=== PATIENT | male | born 1945 | race Two or more races ===

== ENCOUNTER 2018-04-01 01:34 | Emergency (ER) | payer SELFPAY ==
[2018-04-01] MEDS ORDERED: KETOROLAC TROMETHAMINE 60 MG/2 ML VIAL IM ONE (01:40)
[2018-04-01 01:42] VITALS: BP 145/73; PULSE 63; TEMP 97.7; BMI 23.7
[2018-04-01] MEDS ORDERED: CYCLOBENZAPRINE HCL 10 MG TABLET (FP) PO ONE (01:45)
--- NOTE | 2018-04-01 01:46 | PDOC ---
History of Present Illness - General Chief Complaint: Pain, Acute Stated Complaint: CHEST PAIN WITH MOVEMENT Time Seen by Provider: 04/01/18 01:40 History Source: Patient Exam Limitations: No Limitations - History of Present Illness Initial Comments: 04/01/18 01:46 This is a 72-year-old male who comes in complaining of waking up this morning with posterior upper shoulder and neck pain radiating down the outside of his right arm. Patient said as the day progressed the pain then began to radiate across the top of his chest. Pain is worse when he moves. Patient said that the pain is intermittent and when he moves he gets a spasm across the upper part of his chest and it is extremely painful. Patient denies any associated shortness of breath, nausea, diaphoresis. Patient has a history of high cholesterol otherwise denies any cardiac risk factors. He does not smoke he has no family history of coronary disease he has no hypertension diabetes. He said he had something similar in the past that resolved on its own with some anti- inflammatories varied he did take an anti-inflammatory prior to coming in PAST MEDICAL HISTORY: High cholesterol PAST SURGICAL HISTORY: no significant history FAMILY HISTORY: no pertinant history SOCIAL HISTORY: Pt lives with family and is employed. MEDICATIONS: reviewed ALLERGIES: As per nursing notes Review of Systems General: No fevers or chills, no weakness, no weight loss HEENT: No change in vision. No sore throat,. No ear pain CardioVascular: No chest pain or shortness of breath Respiratory:No cough, or wheezing. Gastrointestinal: no nausea, vomitting, diarrhea or constipation, No rectal bleeding Genitourinary: No dysuria, hematuria, or frequency Musculoskeletal: No joint or muscle pain or swelling Neurologic: No headache, vertigo, dizziness or loss of consciousness Psychiatric: nor depression Skin: No rashes or easy bruising Endocrine: no increased thirst or abnormal weight change Allergic: no skin or latex allergy All other systems reviewed and normal Exam: General: Well-nourished well-developed individual, no acute distress HEENT: Throat: Normal, tonsils normal, no erythema or exudate Neck: Supple, no meningeal signs, no lymphadenopathy Eyes::Pupils equal reactive and round, extraocular motion intact Chest: Nontender to palpation Cardiac: S1-S2 normal, regular rate and rhythm, no murmurs rubs or gallops Respiratory: Lungs clear to auscultation bilateral Abdomen: Soft, nondistended, normal bowel sounds, nontender to palpation diffusely Extremities: Warm, dry, no cyanosis, clubbing, or edema Skin: No rashes Neuro: Alert and oriented x3, CN II - XII intact, nonfocal exam with normal strength, normal sensation, normal reflexes, normal gait, Psych: Normal mood and affect EKG shows normal sinus rhythm at a rate of 58, no acute ST-T wave changes, left axis deviation. Assessment and plan: This is a 72-year-old male with anterior chest wall spasm. Patient given Flexeril and Toradol with improvement of his symptoms. An EKG showed no acute changes. His troponin was negative not measurable Patient feels better post Toradol and Flexeril. Patient discharged home will follow-up with his primary care doctor. 04/01/18 03:02 Past History - Past Medical History Allergies/Adverse Reactions: Allergies Allergy/AdvReac Type Severity Reaction Status Date / Time No Known Allergies Allergy Verified 04/01/18 01:36 Home Medications: Ambulatory Orders Cyclobenzaprine HCl [Flexeril 10 mg] 10 mg PO TID #21 tablet 04/01/18 Levothyroxine 04/01/18 Naproxen [Naprosyn -] 375 mg PO BID #20 tablet 04/01/18 Simvastatin 04/01/18 *DC/Admit/Observation/Transfer Diagnosis at time of Disposition: Chest wall pain - Discharge Dispostion Disposition: HOME Condition at time of disposition: Stable Decision to Admit order: No - Referrals - Patient Instructions Additional Instructions: For the pain take Naprosyn 1 tablet as often as twice a day take with food do not take on an empty stomach. For the spasm take Flexeril one tablet as often as 3 times a day do not take the Flexeril if you have to work drive or do anything that requires your concentration. Return to the emergency department immediately with ANY new, persistent or worsening symptoms. Continue any medications as previously prescribed by your physician. You should follow up with your primary doctor as soon as possible regarding today's emergency department visit. . Please make sure your doctor reviews the results of your emergency evaluation. Thank you for coming to the Emergency Department today for your care. It was a pleasure to see you today. Please note that your evaluation is INCOMPLETE until you follow-up with your doctor. - Post Discharge Activity
[2018-04-01] MEDS ORDERED: KETOROLAC TROMETHAMINE 60 MG/2 ML VIAL ONE (01:47)
[2018-04-01] MEDS ORDERED: CYCLOBENZAPRINE HCL 10 MG TABLET (FP) ONE (01:48)
== END 2018-04-01 03:16 | disposition home or self-care (01) ==
LOC: FER 01:34
PROC: 3E0233Z Introduction of Anti-inflammatory into Muscle, Percutaneous Approach (ICD-10-PCS; principal; 2018-04-01)
DX: R07.89 Other chest pain (principal)
CPT/HCPCS: 36415; 82550; 84484; 99281-25

== ENCOUNTER 2022-06-10 17:55 | Emergency (ER) | payer OTHER ==
[2022-06-10 18:16] VITALS: BP 155/85; PULSE 64; RESP 20; TEMP 99; BMI 24.3
[2022-06-10] MEDS ORDERED: KETOROLAC TROMETHAMINE 30 MG/1 ML VIAL IM ONE (18:16)
[2022-06-10] MEDS ORDERED: METHOCARBAMOL 500 MG TABLET PO ONE (18:16)
[2022-06-10] MEDS ORDERED: KETOROLAC TROMETHAMINE 30 MG/1 ML VIAL ONE (18:19)
== END 2022-06-10 20:09 | disposition home or self-care (01) ==
LOC: FER 17:55
PROC: 3E0233Z Introduction of Anti-inflammatory into Muscle, Percutaneous Approach (ICD-10-PCS; principal; 2022-06-10)
DX: M54.50 Low back pain, unspecified (principal)
CPT/HCPCS: 81003; 87086; 99284-25

== ENCOUNTER 2023-04-16 18:03 | Emergency (ER) | payer OTHER ==
[2023-04-16 18:18] VITALS: BP 123/64; PULSE 62; RESP 18; TEMP 98.6; BMI 24.3
[2023-04-16] MEDS ORDERED: AMOX TR/POT CLAV 875MG/125MG TABLETS (FP) PO ONE (20:05)
[2023-04-16] MEDS ORDERED: AMOX TR/POT CLAV 875MG/125MG TABLETS (FP) ONE (20:10)
== END 2023-04-16 20:17 | disposition home or self-care (01) ==
LOC: FER 18:03
DX: M79.651 Pain in right thigh (principal); L03.115 Cellulitis of right lower limb; R22.41 Localized swelling, mass and lump, right lower limb
CPT/HCPCS: 93971-TC; 99284-25

== ENCOUNTER 2023-04-19 23:38 | Emergency (ER) | payer OTHER ==
[2023-04-19 23:45] VITALS: BP 138/74; PULSE 65; RESP 18; TEMP 98; BMI 24.3
== END 2023-04-20 00:04 | disposition home or self-care (01) ==
LOC: FER 23:38
DX: R60.9 Edema, unspecified (principal); M79.89 Other specified soft tissue disorders
CPT/HCPCS: 99282-25